=== PATIENT | female | born 1975 | race Caucasian/White ===

== ENCOUNTER 2018-06-22 17:07 | Emergency (ER) | payer OTHER ==
[~2018-06-22] VITALS: Ht 160 cm; Wt 98.9 kg
[~2018-06-22 17:07] MED LIST: ABILIFY 10 MG10 MG PO; ADVAIR INH; ALPRAZOLAM1 MG PO; CLONIDINE0.1 MG PO; DOXYCYCLINE100 MG PO; FLOVENT HF0.044 MG/A PO; FLOVENT HF0.22 MG/Ac INH; FLUOXETINE40 MG PO; GABAPENTIN100 MG PO; KLONOPIN 1MG TAB1 MG PO; LEVOTHYROXIN0.025 M1 PO; MELOXICAM7.5 MG PO; MONTELUKAST SOD10 MG PO; PROAIR HFA0.09 MG/Ac INH; QUETIAPINE FUMA50 MG PO; TRAMADOL HCL50 M1 PO; VYVANSE50 MG PO; [UNRECOGNIZED DRUG - OTHER] INH
[2018-06-22 18:13] LABS: ABSOLUTE BASOPHIL COUNT 0 /CUMM (0.0-0.2); ABSOLUTE EOSINOPHIL COUNT 0.1 /CUMM (0.0-0.7); ABSOLUTE GRANULOCYTE CT 4.8 /CUMM (1.4-6.5); ABSOLUTE LYMPH COUNT 1.8 /CUMM (1.2-3.4); ABSOLUTE MONOCYTE COUNT 0.3 /CUMM (0.10-0.60); BASOPHIL % 0.4 % (0.0-2.0); EOSINOPHIL % 1.8 % (0-5); GRANULOCYTE % 67.6 % (42.2-75.2); HEMATOCRIT 38.4 % (37-47); MEAN CORPUSCULAR HGB 31.2 PG (27.0-31.0); MEAN CORPUSCULAR HGB CONC 34.5 G/DL (33.0-37.0); MEAN CORPUSCULAR VOLUME 90.6 FL (81.0-99.0); MEAN PLATELET VOLUME 7.4 FL (7.4-10.4); PLATELET COUNT 207 /CUMM (130-400); RBC DISTRIBUTION WIDTH 13.4 % (11.5-14.5); RED BLOOD CELL CT 4.24 /CUMM (4.20-5.40); WHITE BLOOD CELL COUNT 7.1 /CUMM (4.8-10.8)
[2018-06-22 18:24] LABS: PT 11.7 SEC (9.4-12.5); PTT 31 SEC (25-37)
--- NOTE | 2018-06-22 21:03 | CT SCAN REPORT ---
EXAMINATION: CT ABDOMEN AND PELVIS WITH CONTRAST CLINICAL INFORMATION: Left lower quadrant pain. COMPARISON: MR abdomen 10/27/2014 TECHNIQUE: Multidetector volumetric imaging was performed of the abdomen and pelvis following IV administration of 90 mL of Optiray 320 intravenous contrast. Sagittal and coronal reformatted images were obtained on the technologist's workstation. DLP: 712.54 mGy-cm FINDINGS: LUNG BASES: The visualized lung bases are unremarkable. LIVER, GALLBLADDER, AND BILIARY TREE: The liver is normal in size, shape, and attenuation. No focal hepatic lesion or biliary ductal dilatation is present. The gallbladder is contracted. There is no bile duct dilatation. PANCREAS: Unremarkable. SPLEEN: Unremarkable. ADRENAL GLANDS: Unremarkable. KIDNEYS AND URETERS: The kidneys are normal in size, shape, and attenuation. No hydronephrosis, hydroureter, or calculi seen. No perinephric stranding. BLADDER: Unremarkable. GASTROINTESTINAL TRACT: There are a few diverticula of the proximal sigmoid colon. There is no diverticulitis. There is no acute change of the bowel. No bowel obstruction. No bowel wall thickening or edema. The appendix is normal. The small bowel loops are unremarkable. ABDOMINAL WALL: No significant hernia is appreciated. LYMPH NODES: Normal. VASCULAR: Unremarkable. PELVIC VISCERA: Unremarkable. OSSEOUS STRUCTURES: Unremarkable. IMPRESSION: No acute abnormality CT scan abdomen pelvis.
[2018-06-22 21:35] VITALS: BP 121/70
[2018-06-22] MEDS ORDERED: ANUSOL-HC30 GM TOP (21:36)
[2018-06-22] MEDS ORDERED: COLACE100 M1 PO (21:36)
--- NOTE | 2018-06-22 21:37 | ED GENERAL ADULT ---
History of Present Illness General Chief Complaint: General Adult Stated Complaint: BLOOD IN STOOL Source: patient Exam Limitations: no limitations Vital Signs & Intake/Output Vital Signs & Intake/Output Vital Signs Date Time Temp Pulse Resp B/P B/P Pulse O2 O2 Flow FiO2 Mean Ox Delivery Rate 06/22 2135 82 20 121/70 98 06/22 1721 99.8 100 18 113/71 99 Room Air Allergies Coded Allergies: Penicillins (UNKNOWN 02/15/16) Reconcile Medications Albuterol Sulfate (Proair Hfa) 0.09 MG/Actuation KEE 2 PUFF INH PRN ASTHMA ( Reported) Alprazolam 1 MG TABLET 1 TAB PO TID ANXIETY (Reported) Aripiprazole (Abilify) 10 MG TABLET 1 TAB PO DAILY MOOD (Reported) Clonazepam (Klonopin 1MG Tab) 1 MG TAB 1 TAB PO Q8P PRN ANXIETY CLONIDINE HCL (Clonidine) 0.1 MG TABLET 1 TAB PO QPM MOOD (Reported) Docusate Sodium (Colace) 100 MG CAPSULE 1 CAP PO BID constipation FLUOXETINE HCL (Fluoxetine) 40 MG CAPSULE 1 CAP PO DAILY DEPRESSION (Reported ) Fluticasone Propionate (Flovent Hfa) 0.22 MG/Actuation KEE 1 PUFF INH BID COPD /ASTHMA (Reported) 220 MCG PER PUFF Fluticasone Propionate/[place] (Advair Hfa 230-21 Mcg Inhaler) 230 MCG-21 MCG/ ACTUATION HFA.AER.AD 1 PUFF INH BID ASTHMA (Reported) Gabapentin 100 MG CAPSULE 1 CAP PO BID NEUROPATHY (Reported) Hydrocortisone (Anusol-Hc) 2.5 % CREAM..G. 1 CESAR TOP BID hemorrhoid apply to affected area(s) Levothyroxine Sodium 0.025 MG TAB 0.025 MG PO DAILY AC THYROID (Reported) Lisdexamfetamine Dimesylate (Vyvanse) 50 MG CAPSULE 1 CAP PO QAM ADD ( Reported) Meloxicam 7.5 MG TABLET 1 TAB PO DAILY PAIN (Reported) Montelukast Sodium 10 MG TABLET 1 TAB PO QPM ALLERGIES/ASTHMA (Reported) Quetiapine Fumarate 50 MG TAB 2 TAB PO DAILY MOOD (Reported) Tramadol HCl 50 MG TABLET 1 TAB PO Q4-6 PRN PAIN Triage Note: PT COMPLAINS OF 3 DAYS OF DIARHEA , WAS SEEN AND WALK IN AND STARTED ON ABT, STATES THAT NOW TODAY SHE NOTED BRIGHT RED BLOOD IN HER STOOL AND PRESSURE TO ABD Triage Nurses Notes Reviewed? yes Onset: Gradual Duration: day(s): Timing: intermittent : No Patient currently breastfeeds: No HPI: 42-year-old female with a history of hypothyroid, anxiety, depression, bipolar disorder presenting with bloody stools 2 days. Patient reports that she had diarrhea last week, was seen at an urgent care 5 days ago and placed on ciprofloxacin, which he has been taking as prescribed. Has 2 doses left. States that her diarrhea had resolved, but then a few days ago she became constipated. Has had a lot of recent straining in order to attempt passing a bowel movement. Was able to pass a small amount of hard stool yesterday and today, both times she had a painful bowel movement with a small amount of rectal bleeding both in the toilet and on the toilet paper. Has had mild left lower quadrant pain. Expresses concern because a relative of hers gets recurrent diverticulitis. denies fevers, nausea, vomiting, dysuria, vaginal discharge. (Britta Powell) Past History Travel History Traveled to [place] past 21 day No Medical History Any Pertinent Medical History? see below for history Neurological: NONE EENT: NONE Cardiovascular: NONE Respiratory: NONE Gastrointestinal: NONE Hepatic: NONE Renal: NONE Musculoskeletal: NONE Psychiatric: anxiety, bipolar disease, depression Endocrine: HYPOTHRIODISM Cancer(s): NONE History of CDIFF: No Surgical History Surgical History: non-contributory Psychosocial History Who do you live with Father What is your primary language Malawian Tobacco Use: Never used ETOH Use: denies use Illicit Drug Use: denies illicit drug use Family History Hx Contributory? No (rBitta Powell) Review of Systems Review of Systems Constitutional: Reports: no symptoms. EENTM: Reports: no symptoms. Respiratory: Reports: no symptoms. Cardiovascular: Reports: no symptoms. GI: Reports: see HPI. Genitourinary: Reports: no symptoms. Musculoskeletal: Reports: no symptoms. Skin: Reports: no symptoms. Neurological/Psychological: Reports: no symptoms. Hematologic/Endocrine: Reports: no symptoms. Immunologic/Allergic: Reports: no symptoms. All Other Systems: Reviewed and Negative (Britta Powell) Physical Exam Physical Exam General Appearance: well developed/nourished, no apparent distress, alert, awake , comfortable Comments: Gen.: Well-nourished, well-developed, no acute distress. Head: Normocephalic, atraumatic. Eyes: Normal inspection bilaterally Ears: Normal inspection bilaterally Nose: Normal inspection Neck: Normal inspection Lungs: clear to auscultation bilaterally, normnal breath sounds Heart: regular rate and rhythm Abdomen: soft, nondistended, nontender, no rebound or guarding, normal bowel sounds Extremities: Normal inspection Neurologic: alert and oriented x3, steady gait Skin: warm and dry Psychiatric: Normal mood and affect, no apparent delusions or hallucinations, behavior appropriate Core Measures ACS in differential dx? No CVA/TIA Diagnosis: No Sepsis Present: No Sepsis Focused Exam Completed? No (Conchita ARNOLD,Britta) Progress Differential Diagnoses I considered the following diagnoses in my evaluation of the patient: [ Hemorrhoids versus anal fissure versus polyps versus malignancy versus diverticulosis versus diverticulitis versus constipation, low concern for ectopic versus torsion versus UTI] Plan of Care: Orders Procedure Date/time Status URINE 06/22 1748 Complete URINALYSIS 06/22 1748 Complete PARTIAL THROMBOPLASTIN TIME 06/22 1748 Complete PROTHROMBIN TIME 06/22 1748 Complete CBC WITHOUT DIFFERENTIAL 06/22 1748 Complete BASIC METABOLIC PANEL 06/22 1748 Complete Laboratory Tests 06/22/18 1803: Anion Gap 10, Estimated GFR > 60, BUN/Creatinine Ratio 15.0, Glucose 123 H, Calcium 8.9, PT 11.7, INR 1.07, APTT 31, CBC w Diff NO MAN DIFF REQ, RBC 4.24, MCV 90.6, MCH 31.2 H, MCHC 34.5, RDW 13.4, MPV 7.4, Gran % 67.6, Lymphocytes % 25.7, Monocytes % 4.5, Eosinophils % 1.8, Basophils % 0.4, Absolute Granulocytes 4.8, Absolute Lymphocytes 1.8, Absolute Monocytes 0.3, Absolute Eosinophils 0.1, Absolute Basophils 0, Urine Color YEL, Urine Clarity CLEAR, Urine pH 6.0, Ur Specific Corinne 1.020, Urine Protein NEG, Urine Ketones NEG, Urine Nitrite NEG, Urine Bilirubin NEG, Urine Urobilinogen 0.2, Ur Leukocyte Esterase NEG, Ur Microscopic SEDIMENT EXAMINED, Urine RBC 3-5, Urine WBC RARE, Ur Epithelial Cells FEW, Urine Bacteria RARE H, Urine Mucus FEW, Urine Hemoglobin TRACE- INTACT, Urine Glucose NEG, Urine Test NEGATIVE Low concern for acute abdomen as the patient had a benign abdominal exam, abdomen was soft and nontender. Patient requested CT scan due to her high concern for diverticulitis. CT scan was unremarkable Labs unremarkable, urine negative Ovarian torsion was considered given patient has left lower quadrant pain, but on discharge she reports that she currently has no abdominal pain and is well- appearing, and her abdomen has remained nontender on palpation throughout her entire ED visit each time she was assessed. Therefore transvaginal ultrasound was not performed. Was instructed to return to the emergency department if her left lower quadrant pain returns. Exam shows an external hemorrhoid. Will give Rx Colace and Anusol. Counseled on supportive care and strict return precautions. She will follow-up with her PMD for reevaluation peer Initial ED EKG: none (Britta Powell) Departure Departure Disposition: HOME OR SELF CARE Condition: Stable Clinical Impression Primary Impression: External hemorrhoid Referrals: Kassie Hernández (PCP/Family) Additional Instructions: Use Colace and Anusol as prescribed. Follow-up with your primary care provider for reevaluation. Return to the emergency department for any new or worsening symptoms. Departure Forms: Customer Survey General Discharge Information Prescriptions: Current Visit Scripts Docusate Sodium (Colace) 1 CAP PO BID #60 CAP Hydrocortisone (Anusol-Hc) 1 CESAR TOP BID #30 GM apply to affected area(s) (Britta Powell) PA/SEASONAL CUSTOMER SERVICE ASSOCIATE Co-Sign Statement Statement: ED Attending supervision documentation- [] I saw and evaluated the patient. I have also reviewed all the pertinent lab results and diagnostic results. I agree with the findings and the plan of care as documented in the PA's/SEASONAL CUSTOMER SERVICE ASSOCIATE's documentation. [X] I have reviewed the ED Record and agree with the PA's/SEASONAL CUSTOMER SERVICE ASSOCIATE's documentation. [] Additions or exceptions (if any) to the PAs/SEASONAL CUSTOMER SERVICE ASSOCIATE's note and plan are summarized below: [] (Basim Gamino DO) Critical Care Note Critical Care Note Critical Care Time: non-applicable (Britta Powell)
== END 2018-06-22 21:44 ==
LOC: ERH 17:07
PROVIDERS: Physician Assistant
DX: K64.4 Residual hemorrhoidal skin tags (principal)
CPT/HCPCS: 74177; 81001; 81025